=== PATIENT | male | born 1980 | race Hispanic/Latino ===

== ENCOUNTER 2023-11-20 14:45 | Emergency (ER) | payer SELFPAY ==
[2023-11-20] MEDS ORDERED: ONDANSETRON 4 MG/2 ML VIAL ONE (15:32)
[2023-11-20] MEDS ORDERED: FAMOTIDINE 20 MG/2 ML VIAL IV ONE (15:32)
[2023-11-20 16:26] LABS: Bilirubin Total 0.4 mg/dL (0.2-1.0); Globulin 3.9 g/dL (2.3-3.5); Protein, Total 7.9 g/dL (6.4-8.2)
[2023-11-20 16:33] LABS: Absolute Eosinophils 0.2 K/uL (0-0.5); Absolute Monocytes 0.6 K/uL (0.1-1.3); Absolute Neutrophil 3.5 K/uL (1.8-8.0); Basophils % 0.4 % (0-1.3); Eosinophils % 2.9 % (0-4.4); Hematocrit 42.2 % (39.6-49.0); Lymphocytes % 40.8 % (15.3-44.8); MCH 31.4 pg (27.0-35.0); MCHC 33.3 g/dL (32.0-36.0); MCV 94.4 fL (80-100); Monocytes % 8.3 % (3.3-12.3); Neutrophils % 47.6 % (41.7-73.7); Platelets 248 thou/uL (152-406); RBC Red Blood Cell Count 4.47 M/uL (4.33-5.43); Red Cell Distribution Width 13.3 % (12.1-15.2)
--- NOTE | 2023-11-20 17:41 | ER ---
Nurse's Notes [facility] Name: Aydin Salas Age: 43 yrs Sex: Male : 1980 Arrival Date: 11/20/2023 Time: 14:45 Bed 5 Private MD: Diagnosis: Upper abdominal pain, unspecified Presentation: 11/19 14:52 Chief complaint: Patient states: Friday started having stomach pain, bloated, dd2 uncomfortable. Not getting any better. Coronavirus screen: At this time, the client does not indicate any symptoms associated with coronavirus-19. Ebola Screen: No symptoms or risks identified at this time. Initial Sepsis Screen: Does the patient meet any 2 criteria? No. Patient's initial sepsis screen is negative. Does the patient have a suspected source of infection? No. Patient's initial sepsis screen is negative. Risk Assessment: Do you want to hurt yourself or someone else? Patient reports no desire to harm self or others. Onset of symptoms is unknown. 14:52 Method Of Arrival: Ambulatory dd2 14:52 Acuity: NENITA 3 dd2 Triage Assessment: 14:54 General: Appears in no apparent distress. Behavior is calm, cooperative, appropriate dd2 for age. Pain: Complains of pain in right upper quadrant and left upper quadrant. GI: Reports bloating, cramping, nausea, Pain is 6 out of 10 on a pain scale. Historical: - Allergies: 14:54 No Known Allergies; dd2 - Immunization history:: Adult Immunizations unknown. - Infectious Disease History:: Denies. - Social history:: Smoking status: Reported history of juuling and/or vaping. Patient uses street drugs, marijuana. Screenin:44 [facility] ED Fall Risk Assessment (Adult) History of falling in the last 3 months, ph including since admission No falls in past 3 months (0 pts) Confusion or Disorientation No (0 pts) Intoxicated or Sedated No (0 pts) Impaired Gait No (0 pts) Mobility Assist Device Used No (0 pt) Altered Elimination No (0 pt) Score/Fall Risk Level 0 - 2 = Low Risk Oriented to surroundings, Maintained a safe environment, Hourly rounding (assess needs \T\ fall precautionary measures) done. Abuse screen: Denies threats or abuse. Denies injuries from another. Nutritional screening: No deficits noted. Tuberculosis screening: No symptoms or risk factors identified. Assessment: 15:46 General: Appears in no apparent distress. comfortable, well groomed, Behavior is calm, ph cooperative, appropriate for age. Pain: Complains of pain in epigastric area, right upper quadrant and left upper quadrant. Neuro: Level of Consciousness is awake, alert, obeys commands, Oriented to person, place, time, situation. Cardiovascular: Capillary refill < 3 seconds in bilateral fingers. Respiratory: Airway is patent Respiratory effort is even, unlabored. GI: Abdomen is non-distended, Reports upper abdominal pain, epigastric pain, nausea. 17:52 Reassessment: Patient appears in no apparent distress at this time. Patient and/or ph family updated on plan of care and expected duration. Pain level reassessed. Patient is alert, oriented x 3, equal unlabored respirations, skin warm/dry/pink. Patient states symptoms have improved. Vital Signs: 14:52 BP 124 / 89; Pulse 99; Resp 18; Temp 97.6; Pulse Ox 99% ; dd2 15:47 BP 143 / 87; Pulse 74; Resp 18; Pulse Ox 99% on R/A; ph 16:45 BP 135 / 78; Pulse 71; Resp 19; Pulse Ox 99% on R/A; ph 17:52 BP 117 / 64; Pulse 72; Resp 18; Temp 97.8; Pulse Ox 98% on R/A; ph ED Course: 14:47 Patient arrived in ED. mg5 14:48 Daniel Bourne DO is Attending Physician. ms3 14:54 Triage completed. dd2 14:54 Arm band placed on right wrist. Patient placed in an exam room, on a stretcher, on dd2 pulse oximetry, Patient notified of wait time. 15:18 Summer Felipe, RN is Primary Nurse. ph 15:45 CBC with Diff Sent. ph 15:45 CMP Sent. ph 15:45 Lipase Sent. ph 15:45 Initial lab(s) drawn, by me, sent to lab. Inserted saline lock: 20 gauge in right ph antecubital area, using aseptic technique. Blood collected. Flushed with 10 mL NS. 15:46 Patient has correct armband on for positive identification. Bed in low position. Call light in reach. Side rails up X 1. Pulse ox on. NIBP on. Door closed. Noise minimized. 17:40 Stanislav Jacobs MD is Referral Physician. ms3 17:52 No provider procedures requiring assistance completed. IV discontinued, intact, ph bleeding controlled, No redness/swelling at site. Pressure dressing applied. Administered Medications: 15:45 Drug: Famotidine IVP 20 mg IVP once; dilute with 10 mL 0.9% NaCl; give over 2 minutes ph Route: IVP; Site: right antecubital; 17:53 Follow up: Response: No adverse reaction ph 15:45 Drug: Ondansetron IVP 4 mg IVP once; over 2 minutes Route: IVP; Site: right antecubital;ph 17:53 Follow up: Response: No adverse reaction ph Medication: 15:45 VIS not applicable for this client. ph Outcome: 17:40 Discharge ordered by MD. ms3 17:53 Discharged to home ambulatory, ph 17:53 Condition: good 17:53 Discharge instructions given to patient, Instructed on discharge instructions, follow up and referral plans. medication usage, Demonstrated understanding of instructions, follow-up care, medications, Prescriptions given X 1, 17:53 Patient left the ED. ph Signatures: Summer Felipe, RN RN ph Daniel Bourne DO DO ms3 Gi Grace mg5 JAYLEEN WATTS, RN RN dd2 Corrections: (The following items were deleted from the chart) 14:57 14:52 Chief complaint: Patient states: day started having stomach pain, bloated, dd2 uncomfortable. dd2
--- NOTE | 2023-11-20 17:41 | EDPHYS ---
Physician Documentation [facility] Name: Aydin Salas Age: 43 yrs Sex: Male : 1980 Arrival Date: 11/20/2023 Time: 14:45 Bed 5 Private MD: ED Physician Daniel Bourne HPI: 11/19 15:24 This 43 yrs old Male presents to ER via Ambulatory with complaints of ms3 Abdominal Pain. 15:24 43-year-old male with past medical history of hypothyroidism presents to the emergency ms3 department for upper abdominal pain that began 2 days prior to arrival. Patient rates his discomfort a 6/10. He denies radiation. He denies any alleviating or inciting factors. He endorses nausea.. Historical: - Allergies: 14:54 No Known Allergies; dd2 - Immunization history:: Adult Immunizations unknown. - Infectious Disease History:: Denies. - Social history:: Smoking status: Reported history of juuling and/or vaping. Patient uses street drugs, marijuana. ROS: 15:24 Constitutional: Negative for fever, and chills. Cardiovascular: Negative for chest ms3 pain, and palpitations. Respiratory: Negative for shortness of breath, cough, wheezing, and pleuritic chest pain, Abdomen/GI: Negative for abdominal pain, nausea, vomiting, diarrhea, and constipation, MS/Extremity: Negative for injury and deformity, Exam: 15:24 Constitutional: This is a well developed, well nourished patient who is awake, alert, ms3 and in no acute distress. Chest/axilla: Normal chest wall appearance and motion. Nontender with no deformity. Cardiovascular: Regular rate and rhythm with a normal S1 and S2. No gallops, murmurs, or rubs. Normal PMI, no JVD. No pulse deficits. Respiratory: Lungs have equal breath sounds bilaterally, clear to auscultation and percussion. No rales, rhonchi or wheezes noted. No increased work of breathing, no retractions or nasal flaring. 15:24 Abdomen/GI: Inspection: abdomen appears normal, Bowel sounds: normal, Palpation: moderate abdominal tenderness, in the epigastric area, Vital Signs: 14:52 BP 124 / 89; Pulse 99; Resp 18; Temp 97.6; Pulse Ox 99% ; dd2 15:47 BP 143 / 87; Pulse 74; Resp 18; Pulse Ox 99% on R/A; ph 16:45 BP 135 / 78; Pulse 71; Resp 19; Pulse Ox 99% on R/A; ph 17:52 BP 117 / 64; Pulse 72; Resp 18; Temp 97.8; Pulse Ox 98% on R/A; ph MDM: 15:23 Patient medically screened. ms3 17:41 Differential diagnosis: cholecystitis, Cholelithiasis, gastritis, gastroesophageal ms3 reflux disease, non-specific abd pain. Data reviewed: vital signs, nurses notes, lab test result(s), and as a result, I will discharge patient. I considered the following discharge prescriptions or medication management in the emergency department Medications were administered in the Emergency Department. See MAR. Counseling: I had a detailed discussion with the patient and/or guardian regarding the historical points, exam findings, and any diagnostic results supporting the discharge/admit diagnosis, lab results, the need for outpatient follow up, to return to the emergency department if symptoms worsen or persist or if there are any questions or concerns that arise at home. Medication response: Pepcid. Response to treatment: the patient's symptoms have resolved after treatment, and as a result, I will discharge patient. Special discussion: Based on the patient's Hx, exam, and Dx evaluation, there is no indication for emergent surgery or inpatient Tx. It is understood by the patient/guardian that if the Sx's persist or worsen they need to return immediately for re-evaluation. ED course: On reevaluation patient states symptoms resolved, patient is alert and oriented x 4, no apparent distress, nontoxic-appearing, speaking full sentences. Patient to follow-up with Dr. Jacobs in 2 to 3 days for reevaluation. Patient understands and agrees with plan. All questions were answered. Return precautions discussed include worsening symptoms, or any other concerns.. 11/19 15:24 Order name: CBC with Diff; Complete Time: 16:41 ms3 11/19 15:24 Order name: CMP; Complete Time: 16:41 ms3 11/19 15:24 Order name: Lipase; Complete Time: 16:41 ms3 11/19 15:24 Order name: IV Saline Lock; Complete Time: 15:45 ms3 11/19 15:24 Order name: Labs collected and sent; Complete Time: 15:45 ms3 Administered Medications: 15:45 Drug: Famotidine IVP 20 mg IVP once; dilute with 10 mL 0.9% NaCl; give over 2 minutes ph Route: IVP; Site: right antecubital; 17:53 Follow up: Response: No adverse reaction ph 15:45 Drug: Ondansetron IVP 4 mg IVP once; over 2 minutes Route: IVP; Site: right antecubital;ph 17:53 Follow up: Response: No adverse reaction ph Disposition Summary: 11/20/23 17:40 Discharge Ordered Notes: Location: Home ms3 Condition: Stable ms3 Diagnosis - Upper abdominal pain, unspecified ms3 Followup: ms3 - With: Stanislav Jacobs MD - When: 2 - 3 days - Reason: Recheck today's complaints Discharge Instructions: - Discharge Summary Sheet ms3 - Gastritis, Adult, [id number] ms3 Forms: - Medication Reconciliation Form ms3 - Antibiotic Education ms3 - Prescription Opioid Use ms3 - Patient Portal Instructions ms3 - Leadership Thank You Letter ms3 Prescriptions: - Pepcid 20 mg Oral Tablet - take 1 tablet ORAL route every 12 hours for 5 days; 10 tablet; Refills: 0, ms3 Product Selection Permitted Signatures: Dispatcher [employer] EDMS Summer Felipe, RN RN Daniel Walter DO DO ms3 JAYLEEN WATTS, RN RN dd2 Corrections: (The following items were deleted from the chart) 15:24 15:24 CBC+H.LAB.BRZ ordered. EDMS EDMS 15:24 15:24 COMPREHENSIVE METABOLIC PANEL+C.LAB.BRZ ordered. EDMS EDMS 15:24 15:24 LIPASE+C.LAB.BRZ ordered. EDMS EDMS
[2023-11-20 18:26] VITALS: BP 117/64; TEMP 97.8; O2SAT 98
== END 2023-11-20 17:53 | disposition home or self-care (01) ==
LOC: ER 14:45
DX: R10.13 Epigastric pain (principal)
CPT/HCPCS: 36415; 80053; 83690; 85025; 96374; 96375; 99284; J2405

== ENCOUNTER 2023-11-22 05:41 | Emergency (ER) | payer SELFPAY ==
[2023-11-22] MEDS ORDERED: NA CHLORIDE 0.9% 1,000 ML ONE (05:58)
[2023-11-22] MEDS ORDERED: LORazepam 2 MG/ML VIAL ONE (05:58)
[2023-11-22 06:06] LABS: Absolute Lymphocytes (CBC) 2.6 K/uL (0.7-4.9); Absolute Monocytes 0.7 K/uL (0.1-1.3); Absolute Neutrophil 6.7 K/uL (1.8-8.0); Basophils % 0.2 % (0-1.3); Eosinophils % 0.4 % (0-4.4); Hematocrit 39.4 % (39.6-49.0); Hemoglobin 13.4 g/dL (13.6-17.9); Lymphocytes % 25.4 % (15.3-44.8); MCH 31.7 pg (27.0-35.0); MPV 8.9 fL (7.6-11.3); Monocytes % 7.1 % (3.3-12.3); Neutrophils % 66.9 % (41.7-73.7); Platelets 262 thou/uL (152-406); RBC Red Blood Cell Count 4.23 M/uL (4.33-5.43); Red Cell Distribution Width 13.1 % (12.1-15.2)
[2023-11-22 06:26] LABS: ALT/SGPT 23 U/L (16-61); Albumin 3.9 g/dL (3.4-5.0); Albumin/Globulin Ratio 1.1 (1.1-1.8); Alkaline Phosphatase 61 U/L (45-117); Anion Gap 10.5 mEq/L (5.0-15.0); BUN Blood Urea Nitrogen 11 mg/dL (7-18); Bicarbonate 24 mEq/L (21-32); Bilirubin Total 0.2 mg/dL (0.2-1.0); Globulin 3.4 g/dL (2.3-3.5); Glomerular Filtration Rate 104 ml/min (=/>90); Glucose Level 119 mg/dL (74-106); Magnesium 2.1 mg/dL (1.6-2.4); NT PRO-BNP 137 pg/mL (<125); Potassium 3.5 mEq/L (3.5-5.1); Protein, Total 7.3 g/dL (6.4-8.2); Sodium Level 139 mEq/L (136-145); Troponin High Sensitivity 4.1 pg/mL (<58.9)
[2023-11-22 06:28] LABS: AST/SGOT < 10 U/L (15-37); Bilirubin Direct < 0.2 mg/dL (0-0.2)
--- NOTE | 2023-11-22 07:06 | ER ---
[facility]'s Notes [facility] Name: Aydin Salas Age: 43 yrs Sex: Male : 1980 Arrival Date: 11/22/2023 Time: 05:41 Bed 7 Private MD: Diagnosis: Acute chest pain, pain secondary to cocaine use;Anxiety attack Presentation: 11/21 05:43 Chief complaint: EMS states: toned out for SOB, pt reports using cocaine about an hour iw ago, also having left sided sharp chest pains. Coronavirus screen: At this time, the client does not indicate any symptoms associated with coronavirus-19. Ebola Screen: No symptoms or risks identified at this time. Onset of symptoms was November 22, 2023. 05:43 Method Of Arrival: EMS: [facility] iw 05:43 Acuity: NENITA 2 iw 05:43 Initial Sepsis Screen: Does the patient meet any 2 criteria? No. Patient's initial vc1 sepsis screen is negative. Does the patient have a suspected source of infection? No. Patient's initial sepsis screen is negative. Risk Assessment: Do you want to hurt yourself or someone else? Patient reports no desire to harm self or others. Historical: - Allergies: 05:44 No Known Allergies; iw - Home Meds: 05:44 None [Active]; iw - PMHx: 05:44 None; iw - PSHx: 05:44 None; iw - Immunization history:: Adult Immunizations unknown. - Infectious Disease History:: Denies. - Family history:: not pertinent. - Social history:: Smoking status: unknown Patient uses street drugs, cocaine. Screenin:03 Abuse screen: Denies threats or abuse. Denies injuries from another. Nutritional ss screening: No deficits noted. Tuberculosis screening: Never had TB. 06:03 [facility] ED Fall Risk Assessment (Adult) History of falling in the last 3 months, vc1 including since admission No falls in past 3 months (0 pts) Confusion or Disorientation No (0 pts) Intoxicated or Sedated No (0 pts) Impaired Gait No (0 pts) Mobility Assist Device Used No (0 pt) Altered Elimination No (0 pt) Score/Fall Risk Level 0 - 2 = Low Risk Oriented to surroundings, Maintained a safe environment, Educated pt \T\ family on fall prevention, incl call for assistance when getting out of bed. Assessment: 06:03 General: Appears uncomfortable, Behavior is cooperative, anxious, quiet. Pain: ss Complains of pain in chest Pain currently is 6 out of 10 on a pain scale. Is continuous. Neuro: Level of Consciousness is awake, alert, obeys commands, Oriented to person, place, time, situation, Speech is normal, Pupils are PERRLA. Respiratory: Airway is patent Respiratory effort is even, unlabored, Respiratory pattern is regular, symmetrical. EENT: Nares are clear. Derm: Skin is intact, is healthy with good turgor, Skin is pink, warm \T\ dry. normal. Vital Signs: 05:47 BP 130 / 93; Pulse 82; Resp 16; Pulse Ox 98% ; Pain 6/10; iw 07:19 BP 125 / 81; Pulse 79; Resp 16; Pulse Ox 100% ; Pain 0/10; vc1 05:47 Pain Scale: Adult iw 07:19 Pain Scale: Adult vc1 ED Course: 05:43 Patient arrived in ED. cp4 05:44 Triage completed. iw 05:44 Arm band placed on. iw 05:44 Patient has correct armband on for positive identification. Placed in gown. Bed in low vc1 position. Call light in reach. Provided Education on: cessation of cocaine. panel monitor on. Pulse ox on. NIBP on. 05:48 Nagi Ford MD is Attending Physician. sp4 06:00 Inserted saline lock: 20 gauge in right antecubital area, using aseptic technique. ss ,using aseptic technique. Inserted by Sultan certified medical technician Blood collected. Flushed with 10 mL NS. 06:02 Lilly Vera, REED is Primary Nurse. ss 07:17 No provider procedures requiring assistance completed. IV discontinued, intact, vc1 bleeding controlled, No redness/swelling at site. Pressure dressing applied. Administered Medications: 06:02 Drug: Ativan IVP 2 mg IVP once Route: IVP; Site: right antecubital; ss 07:20 Follow up: Response: No adverse reaction; Marked relief of symptoms; Anxiety decreased vc1 06:02 Drug: NS 0.9% IV 1000 ml IV at 1 bolus Per protocol; 1000 mL bolus Route: IV; Rate: 1 ss bolus; Site: right antecubital; 07:21 Follow up: IV Status: Completed infusion; IV Intake: 1000ml vc1 Medication: 06:03 VIS not applicable for this client. ss Intake: 07:21 IV: 1000ml; Total: 1000ml. vc1 Outcome: 07:06 Discharge ordered by . angelito 07:17 Discharged to home ambulatory, vc1 07:17 Condition: good 07:17 Discharge instructions given to patient, Instructed on discharge instructions, follow up and referral plans. Demonstrated understanding of instructions, follow-up care, 07:20 Patient left the ED. vc1 Signatures: Imani Odom RN REED Lilly Vera RN RN ss Calcote, Vanessa, RN RN vc1 Nagi Ford MD MD spMelanie Camacho
--- NOTE | 2023-11-22 07:06 | EDPHYS ---
Physician Documentation [facility] Name: Aydin Salas Age: 43 yrs Sex: Male : 1980 Arrival Date: 11/22/2023 Time: 05:41 Bed 7 Private MD: ED Physician Nagi Ford HPI: 11/21 05:48 This 43 yrs old Male presents to ER via EMS with complaints of Shortness Of sp4 Breath. 06:06 43-year-old male presents with acute onset chest pain and shortness of breath after sp4 cocaine abuse 2 hours prior to arrival. Historical: - Allergies: 05:44 No Known Allergies; iw - Home Meds: 05:44 None [Active]; iw - PMHx: :44 None; iw - PSHx: 05:44 None; iw - Immunization history:: Adult Immunizations unknown. - Infectious Disease History:: Denies. - Family history:: not pertinent. - Social history:: Smoking status: unknown Patient uses street drugs, cocaine. ROS: 06:06 Constitutional: Negative for fever, chills, and weight loss, positive chest pain and sp4 shortness of breath, positive cocaine use 06:06 All other systems are negative, Exam: 06:06 Constitutional: This is a well developed, well nourished patient who is awake, alert, sp4 and in no acute distress. Head/Face: Normocephalic, atraumatic. Eyes: Pupils equal round and reactive to light, extra-ocular motions intact. Lids and lashes normal. Conjunctiva and sclera are not injected. Cornea within normal limits. Periorbital areas with no swelling, redness, or edema. ENT: Nares patent. No nasal discharge, no septal abnormalities noted. Tympanic membranes are normal and external auditory canals are clear. Oropharynx with no redness, swelling, or masses, exudates, or evidence of obstruction, uvula midline. Mucous membranes moist. Neck: Trachea midline, no thyromegaly or masses palpated, and no cervical lymphadenopathy. Supple, full range of motion without nuchal rigidity, or vertebral point tenderness. Chest/axilla: Normal chest wall appearance and motion. Nontender with no deformity. No lesions are appreciated. Cardiovascular: Regular rate and rhythm with a normal S1 and S2. No gallops, murmurs, or rubs. Normal PMI, no JVD. No pulse deficits. Respiratory: Lungs have equal breath sounds bilaterally, clear to auscultation and percussion. No rales, rhonchi or wheezes noted. No increased work of breathing, no retractions or nasal flaring. Abdomen/GI: Soft, with normal bowel sounds. No distension or tympany. No guarding or rebound. No evidence of tenderness throughout. Back: No spinal tenderness. No costovertebral tenderness. Skin: Warm, dry with normal turgor. Normal color with no rashes, no lesions, and no evidence of cellulitis. MS/ Extremity: Pulses equal, no cyanosis. Neurovascular intact. Full, normal range of motion. Neuro: Awake and alert, GCS 15, oriented to person, place, time, and situation. Cranial nerves II-XII grossly intact. Motor strength 5/5 in all extremities. Sensory grossly intact. Psych: Awake, alert, with orientation to person, place and time. Behavior, mood, and affect are within normal limits 06:06 ECG was reviewed by the Attending Physician. EG at 0 542 normal sinus rhythm rate 77 Vital Signs: 05:47 BP 130 / 93; Pulse 82; Resp 16; Pulse Ox 98% ; Pain 6/10; iw 07:19 BP 125 / 81; Pulse 79; Resp 16; Pulse Ox 100% ; Pain 0/10; vc1 05:47 Pain Scale: Adult iw 07:19 Pain Scale: Adult vc1 MDM: 05:49 Patient medically screened. sp4 06:07 Differential diagnosis: Anxiety Reaction asthma, Bronchitis CHF exacerbation, Chronic sp4 Obstructive Pulmonary Disease. Data reviewed: vital signs, nurses notes, EMS record, old medical records, lab test result(s), EKG. 11/21 05:48 Order name: Basic Metabolic Panel; Complete Time: 06:57 sp4 11/21 05:48 Order name: CBC with Diff; Complete Time: 06:57 sp4 11/21 05:48 Order name: LFT's; Complete Time: 06:57 sp4 11/21 05:48 Order name: Magnesium; Complete Time: 06:57 sp4 11/21 05:48 Order name: NT PRO-BNP; Complete Time: 06:57 sp4 11/21 05:48 Order name: Troponin HS; Complete Time: 06:57 sp4 11/21 05:48 Order name: Cardiac monitoring; Complete Time: 05: sp4 11/21 05:48 Order name: EKG - Nurse/Tech; Complete Time: sp4 11/21 05:48 Order name: IV Saline Lock; Complete Time: sp4 11/21 05:48 Order name: Labs collected and sent; Complete Time: sp4 11/21 05:48 Order name: O2 Per Protocol; Complete Time: sp4 11/21 05:48 Order name: O2 Sat Monitoring; Complete Time: sp4 EC:06 Rate is 77 beats/min. Rhythm is regular, Normal Sinus Rhythm. QRS [place] is Normal. [place] sp4 interval is normal. QRS interval is normal. QT interval is normal. No Q waves. T waves are Normal. No ST changes noted. Clinical impression: Normal ECG. Interpreted by me. Reviewed by me. Administered Medications: 06:02 Drug: Ativan IVP 2 mg IVP once Route: IVP; Site: right antecubital; 07:20 Follow up: Response: No adverse reaction; Marked relief of symptoms; Anxiety decreased vc1 06:02 Drug: NS 0.9% IV 1000 ml IV at 1 bolus Per protocol; 1000 mL bolus Route: IV; Rate: 1 ss bolus; Site: right antecubital; 07:21 Follow up: IV Status: Completed infusion; IV Intake: 1000ml vc1 Disposition Summary: 11/22/23 07:06 Discharge Ordered Notes: Location: Home sp4 Problem: new sp4 Symptoms: have improved sp4 Condition: Stable sp4 Diagnosis - Acute chest pain, pain secondary to cocaine use sp4 - Anxiety attack sp4 Followup: sp4 - With: Private Physician - When: As needed - Reason: Discharge Instructions: - Discharge Summary Sheet sp4 - Cocaine Use Disorder sp4 Forms: - Patient Portal Instructions sp4 Signatures: Dispatcher [employer] Imani Young RN RN iw Blanchard, Shelby, RN RN ss Calcote, Vanessa, RN RN vc1 Nagi Ford MD MD sp4
[2023-11-22 07:46] VITALS: BP 125/81; O2SAT 100
--- NOTE | 2023-11-24 17:05 | EKG ---
Test Date: 2023-11-22 Test Time: 05:42:10 Accounts Payables Clerk: DEBBIE MEASUREMENT RESULTS: Intervals: Rate: 77 IL: 146 QRSD: 80 QT: 400 QTc: 452 [place]: P: 62 IL: 146 QRS: 51 T: 33 INTERPRETIVE STATEMENTS: Normal sinus rhythm with sinus arrhythmia Normal ECG No previous ECG available for comparison Electronically Signed On 11-24-23 17:00:28 CDT by Humberto Henley
== END 2023-11-22 07:20 | disposition home or self-care (01) ==
LOC: ER 05:41
DX: F14.90 Cocaine use, unspecified, uncomplicated (principal); F41.0 Panic disorder [episodic paroxysmal anxiety]
CPT/HCPCS: 36415; 80048; 80076; 83735; 83880; 84484; 85025; 93005; 96361; 96374; 99285; J7030